=== PATIENT | female | born 1965 | race Two or more races ===

== ENCOUNTER → 2020-01-25 | Outpatient (CLI) | payer MEDICARE, MEDICAID | END | disposition home or self-care (01) | LOC: Rad HDHVI 13:08 | PROVIDERS: ATTEND Internal Medicine Cardiovascular Disease | DX: R94.4 Abnormal results of kidney function studies (principal); R07.9 Chest pain, unspecified; R42 Dizziness and giddiness; R00.2 Palpitations | CPT/HCPCS: 36415; 82565; 93306 ==

== ENCOUNTER → 2020-01-27 | Outpatient (CLI) | payer MEDICARE, MEDICAID ==
[~2020-01-27] VITALS: Ht 30.5 cm; Wt 55.8 kg
[~2020-01-27] MED LIST: IOHEXOL 350 MG/ML 100ML IJ ONE; diphenhdrAMINE HCL 50 MG/1 ML VL IV ONE; diphenhdrAMINE HCL 50 MG/1 ML VL ONE; methylPREDNISolone SOD SUCC 125 MG/2 ML VL IV ONE; methylPREDNISolone SOD SUCC 125 MG/2 ML VL ONE
[2020-01-27 08:40] VITALS: BP 109/73
[2020-01-27 09:30] VITALS: BP 106/54
[2020-01-27 12:47] VITALS: BP 109/73
== END | disposition home or self-care (01) ==
LOC: Rad HDHVI 08:32
PROVIDERS: ATTEND Internal Medicine Cardiovascular Disease
DX: I25.10 Atherosclerotic heart disease of native coronary artery without angina pectoris (principal); R58 Hemorrhage, not elsewhere classified; R42 Dizziness and giddiness; M54.2 Cervicalgia
CPT/HCPCS: 71275; 96374; 96375; G0463; J1200; J2930; Q9967

== ENCOUNTER → 2020-02-01 | Outpatient (CLI) | payer MEDICARE, MEDICAID ==
[~2020-02-01] VITALS: Ht 167.6 cm; Wt 55.8 kg
== END | disposition home or self-care (01) ==
LOC: Rad HDHVI 07:56
PROVIDERS: ATTEND Internal Medicine Cardiovascular Disease
DX: M54.2 Cervicalgia (principal); I25.10 Atherosclerotic heart disease of native coronary artery without angina pectoris; R42 Dizziness and giddiness; Z82.49 Family history of ischemic heart disease and other diseases of the circulatory system
CPT/HCPCS: 78452; 93017; 96374; A9500

== ENCOUNTER → 2020-02-06 | Outpatient (CLI) | payer MEDICARE, MEDICAID | END | disposition home or self-care (01) | LOC: Rad HDHVI 11:10 | PROVIDERS: ATTEND Internal Medicine Cardiovascular Disease | DX: R07.9 Chest pain, unspecified (principal); R42 Dizziness and giddiness; R00.2 Palpitations | CPT/HCPCS: 93880 ==

== ENCOUNTER → 2020-02-13 | Outpatient (CLI) | payer MEDICARE, MEDICAID | END | disposition home or self-care (01) | LOC: LAB 12:46 | PROVIDERS: ATTEND Internal Medicine Cardiovascular Disease | DX: M32.10 Systemic lupus erythematosus, organ or system involvement unspecified (principal); R70.0 Elevated erythrocyte sedimentation rate; R79.82 Elevated C-reactive protein (CRP) | CPT/HCPCS: 36415; 85652; 86141; 86256 ==

== ENCOUNTER 2020-04-15 09:31 | Emergency (ER) | payer MEDICARE, MEDICAID ==
[~2020-04-15] VITALS: Ht 167.6 cm; Wt 53.5 kg
[2020-04-15] MEDS ORDERED: HYDROcodone-ACET 5/325MG TAB PO ONE (10:45)
[2020-04-15] MEDS ORDERED: fentaNYL CITRATE 100 MCG/2 ML VL IV ONE ×2 (12:00→13:00)
[2020-04-15] MEDS ORDERED: MIDAZOLAM HCL 5 MG/ML-1ML VIAL IV ONE (12:00)
[2020-04-15 14:12] VITALS: BP 96/69
[2020-04-15] MEDS ORDERED: TETANUS-DIPTH-ACEL PERTUSSIS 0.5ML SYR Tdap IM ONE (14:15)
== END 2020-04-15 14:13 | disposition home or self-care (01) ==
LOC: ER 09:31
DX: S52.122A Displaced fracture of head of left radius, initial encounter for closed fracture (principal); S53.105A Unspecified dislocation of left ulnohumeral joint, initial encounter; J45.909 Unspecified asthma, uncomplicated; Z91.041 Radiographic dye allergy status; W19.XXXA Unspecified fall, initial encounter; Y93.89 Activity, other specified; Y92.89 Other specified places as the place of occurrence of the external cause; Y99.8 Other external cause status
CPT/HCPCS: 24600; 73080; 90471; 90715; 99285; J2250; J3010

== ENCOUNTER 2020-04-23 10:19 | Emergency (ER) | payer MEDICARE, MEDICAID ==
[~2020-04-23] VITALS: Ht 167.6 cm; Wt 53.5 kg
[2020-04-23 10:26] VITALS: BP 128/76
[2020-04-23] MEDS ORDERED: HYDROcodone-ACET 5/325MG TAB PO ONE (11:30)
== END 2020-04-23 12:51 | disposition home or self-care (01) ==
LOC: ER 10:19
DX: M25.532 Pain in left wrist (principal); S52.592D Other fractures of lower end of left radius, subsequent encounter for closed fracture with routine healing; X58.XXXD Exposure to other specified factors, subsequent encounter
CPT/HCPCS: 29105; 73110